=== PATIENT | male | born 2000 | race Two or more races ===

== ENCOUNTER 2024-04-22 07:49 | Emergency (ER) | payer MEDICAID, SELFPAY ==
[2024-04-22 07:59] VITALS: BP 135/82; PULSE 84; RESP 18; TEMP 36.6; O2SAT 97; BMI 29.8
--- NOTE | 2024-04-22 08:08 | XR_ITS ---
Examination: Toes, right foot second digit 3 views Technique: Toes AP oblique lateral 3 views first digit right foot Date and time of exam: April 22, 2024 0842 hrs. Indications: Injury to the foot today with second digit pain Findings: No acute fracture Limited study, no true lateral view the second digit No dislocation No foreign body Impression: No acute fracture
--- NOTE | 2024-04-22 08:08 | PD.EDANKLE ---
Lower Extremity Injury RME/HPI General Chief Complaint: Ankle/Foot Injury Stated Complaint: RIGHT BIG TOE INJURY Time Seen by Provider: 04/22/24 07:55 Arrival date/time: 04/22/24 07:49 23 year old male present to emergency room with c/o of right toe injury today. uptodate with tetanus LOCATION: toe SEVERITY: Symptoms are described as being severe with limitations on activities of daily living QUALITY: Symptoms are described as being dull or achy CONTEXT: accidently stub toe at home DURATION/TIMING: The symptoms started approximately immediately prior to arrival ago and have been constant this then. ASSOCIATED SYMPTOMS: The patient is unable to identify any other associated symptoms. MODIFYING FACTORS: The patient is unable to identify any alleviating or aggravating symptoms. PERTINENT ROS: no fevers, no headache, no neck or chest pain, no unexplained nausea or vomiting, no focal neurological deficits REVIEW OF SYSTEMS: See History of Present Illness - with the exception of those mentioned in the history of present illness, all other systems reviewed and reported as negative GENERAL: In general the patient is awake, interactive, in an emergency department gurney. HEAD/EYES/EARS/NOSE/THROAT: normo-cephalic, atraumatic, mucus membranes are moist, anicteric, palpebral conjunctiva is pink, trachea is midline. NEUROLOGICAL: cranio-facial features are symmetric, moves all four extremities equally without obvious limitations or weakness. EXTREMITY: right foot 2nd MTP + nail plate avulsion and no active bleeding + tenderness no tenderness to palpation over the long bones or large joints of the bilateral upper extremities, no joint swelling, no joint erythema, no unilateral leg swelling and no peripheral edema. SKIN: warm, dry, well-perfused, no jaundice, no rash, no telangiectasias or petechia. PSYCH: calm, cooperative, no evidence of psychosis or agitation Related Data Previous Rx's ?Medication ?Instructions ?Recorded cephalexin 250 mg capsule 250 mg PO Q6H #7 caps 04/22/24 Allergies Allergy/AdvReac Type Severity Reaction Status Date / Time NKA* Allergy Uncoded 04/22/24 07:51 Course Course Course Narrative: xray: wound care, dressing, crutches first dose of keflex 500mg did not remove nail plate. no active bleeding nail plate separate from nail cuticle + nail plate fungus, difficult to repair will leave open. most likely toe nail plate will fall off. pt understands and agreeable with plan. xray: Findings: No acute fracture Limited study, no true lateral view the second digit No dislocation No foreign body Impression: No acute fracture Quality Measures none Orders Category Date Time Status Crutches .NOW Care 04/22/24 08:08 Active Dress wound [Wound Care] X1 Care 04/22/24 08:08 Active Irrigate Wound NOW Care 04/22/24 08:08 Active XR toe RT min 2V Stat Exams 04/22/24 08:08 Completed cephALEXin [Keflex] Med 04/22/24 08:08 Discontinued 500 mg PO X1 ONE Vital Signs Vital signs: Vital Signs Temperature 97.8 F 04/22/24 07:59 Pulse Rate 84 04/22/24 07:59 Respiratory Rate 18 04/22/24 07:59 Blood Pressure 135/82 H 04/22/24 07:59 Pulse Oximetry (%) 97 04/22/24 07:59 Oxygen Delivery Method Room Air 04/22/24 07:59 Extremity Injury, Lower Patient data External records reviewed:: None Clinical information provided by:: patient Social determinants that could affect healthcare access:: none Patient has the following chronic illnesses:: none How is presenting disease/condition affected by chronic disease/condition?: no chronic disease Evaluation data The following diagnostics were reviewed and interpreted by me:: radiology exam(s) Lab and/or radiology exams considered but not ordered:: none Interpretation Summary: xray: Findings: No acute fracture Limited study, no true lateral view the second digit No dislocation No foreign body Impression: No acute fracture Medications / Prescriptions Medications or Prescriptions considered but not ordered:: n/a Medication administrations:: Medication Administration History Discontinued Medications Cephalexin HCl (Cephalexin 250 Mg Capsule) 500 mg PO X1 ONE Stop: 04/22/24 08:09 Last Admin: 04/22/24 08:32 Dose: 500 mg Documented By: JT as stated above Consultations Consultation(s) initiated? (list below): No Diagnosis Most likely diagnosis given after review of the tests above:: toe contusion, nail plate separation Admission Indicated Admission indicated?: not indicated Admission Request Was there a request for admission?: No Disposition Plan Disposition Plan: Discharge Discharge Attestation Discharge Attestation: The patient and all family members were given an opportunity to ask questions and understood the discharge instructions. Discharge instructions specifically effects, indications for sooner follow up or return to the emergency department, and the expected course of current diagnosis. Patient condition: Stable Discharge Plan Plan Patient Disposition: HOME (Self Care) Health Concerns: Follow with PMD as directed Take tylenol or motrin as need Return to ED if sx worsen Prescriptions/Referrals Prescriptions/Med Rec: New cephalexin 250 mg capsule 250 mg PO Q6H Qty: 7 0RF Problem List Clinical Impression: Separation of nail plate Patient/Caregiver Discharge Instructions Education Materials: ED Dressing Change Print Language: Micronesian Stand Alone Forms: Eleanor Award Info., Patient Portal Info Letter
[2024-04-22] MEDS: cephALEXin 250 MG CAPSULE 500 MG PO (08:32)
== END 2024-04-22 09:43 | disposition home or self-care (01) ==
PROVIDERS: Emergency Provider Emergency Medicine; PCP Family Medicine
DX: S91.201A Unspecified open wound of right great toe with damage to nail, initial encounter (principal); B35.1 Tinea unguium; X58.XXXA Exposure to other specified factors, initial encounter
CPT/HCPCS: 73660; 99283; A9270

== ENCOUNTER 2025-02-14 19:37 | Emergency (ER) | payer MEDICAID, SELFPAY ==
[2025-02-14 19:40] VITALS: BMI 29.1
--- NOTE | 2025-02-14 19:51 | PD.EDURI ---
Upper Respiratory Inf. RME/HPI General Chief Complaint: Flu Like Symptoms Stated Complaint: COUGHING,BODYACHES Time Seen by Provider: 02/14/25 19:55 Arrival date/time: 02/14/25 19:37 RME / HPI RME / HPI Narrative: See [facility] for Dr. Boudreaux's HPI Documentation. Related Data Previous Rx's ?Medication ?Instructions ?Recorded cephalexin 250 mg capsule 250 mg PO Q6H #7 caps 04/22/24 acetaminophen 300 mg-codeine 30 mg 2 tab PO Q8H PRN pain #10 tabs 02/14/25 tablet albuterol sulfate 90 mcg/actuation 2 puff inhalation Q6H PRN 02/14/25 aerosol inhaler shortness of breath or wheezing #8.5 grams ibuprofen 800 mg tablet 800 mg PO Q8H PRN pain #30 tabs 02/14/25 oseltamivir 75 mg capsule (Tamiflu) 75 mg PO BID 5 days #10 caps 02/14/25 Allergies Allergy/AdvReac Type Severity Reaction Status Date / Time No Known Allergies Allergy Verified 02/14/25 19:38 Review of Systems Review of Systems Systems Reviewed: All systems reviewed, normal except as documented Past Medical History Past Medical History RESPIRATORY: Positive Asthma ED Exam Narrative Physical exam: See [facility] for Dr. Boudreaux's Physical Exam Documentation. Course Quality Measures none Orders Category Date Time Status Bedside COVID-19 Antigen Test NOW Care 02/14/25 19:53 Completed Bedside Influenza A&B Antigen Test NOW Care 02/14/25 19:53 Completed Bedside STREP Test NOW Care 02/14/25 19:53 Completed XR chest 2V Stat Exams 02/14/25 19:53 Completed ACETAMINOPHEN w/COD 300-30 [Tylenol w/Cod #3] Med 02/14/25 19:52 Discontinued 2 tab PO X1 ONE Ibuprofen Tab [Motrin Tab] Med 02/14/25 19:52 Discontinued 800 mg PO X1 ONE Ondansetron Odt [Zofran Odt] Med 02/14/25 19:52 Discontinued 4 mg PO X1 ONE Oseltamivir [Tamiflu] Med 02/14/25 20:26 Discontinued 75 mg PO X1 ONE predniSONE Med 02/14/25 19:52 Discontinued 60 mg PO X1 ONE Vital Signs Vital signs: Vital Signs Temperature 98.9 F 02/14/25 19:52 Pulse Rate 118 H 02/14/25 19:52 Respiratory Rate 18 02/14/25 19:52 Blood Pressure 147/72 H 02/14/25 19:52 Pulse Oximetry (%) 98 02/14/25 19:52 Oxygen Delivery Method Room Air 02/14/25 19:52 Upper Respiratory Infection MDM Narrative MDM Narrative:: This section includes all my notes and documentations, including HPI, PE, and ED course. Fabio Boudreaux MD HPI: 24 y/o male with Hx of Asthma presents with cough, congestion, and body aches for about 24 hours. No other complaints. ROS: All negative except as documented in HPI. Physical Exam: General: Alert and oriented. Appears uncomfortable. Eyes: Conjunctivae and lids clear. ENT: No nasal congestion. Pharynx normal. TM normal bilaterally. Neck: Supple. Heart: Tachycardia with regular rhythm. Lungs: No respiratory distress. Good air movement. No rhonchi, wheezing, rales. Abdomen: Soft and nontender. Skin: Warm and dry. Neuro: Alert and oriented X 3. I reviewed all diagnostic test results: My interpretation of the chest x-ray is: NAD. Covid/Influenza: Positive Influenza A. Rapid Strep: Negative. At this point, diagnoses include: Influenza Treatment here included: Two Tylenol #3 Motrin 800 mg Zofran ODT 4 mg Prednisone 60 mg Tamiflu 75 mg He felt much better. Recommended outpatient treatment. Based on my best medical judgment, made decision no further evaluation or treatment indicated at this time. Patient understands and agrees to the discharge instructions customized and printed, see below. Discharge instructions from Dr. Boudreaux: -- No physical exertion for 3 days to help rest the lungs. -- No smoking or exposure to smoking or pets or dust or cold or humidity. -- Tamiflu to kill the germs causing the Influenza. -- Prednisone to help decrease the swelling in the airways. -- Albuterol 2 puffs every 4-6 hours as needed for cough or shortness of breath. -- For good hydration, increase oral fluid and maintain clear urine. If dark or yellow, increase oral fluid. We need extra fluid when we are sick. -- Ibuprofen 800 mg every 6-8 hours today and tomorrow to decrease inflammation then as needed. -- Tylenol with codeine for severe cough or severe pain. -- See a private doctor next week for recheck if not completely better. -- Seek immediate medical care with worsening or with any concerns. Fabio Boudreaux MD Patient data External records reviewed:: [facility] previous records (Reviewed prior ED records from 04/22/24. Patient was seen for Separation of nail plate.) Clinical information provided by:: patient Social determinants that could affect healthcare access:: none Patient has the following chronic illnesses:: Asthma How is presenting disease/condition affected by chronic disease/condition?: exacerbated by Evaluation data The following diagnostics were reviewed and interpreted by me:: radiology exam(s) Lab and/or radiology exams considered but not ordered:: None Interpretation Summary: I reviewed all diagnostic test results: My interpretation of the chest x-ray is: NAD. Covid/Influenza: Positive Influenza A. Rapid Strep: Negative. Medications / Prescriptions Medications or Prescriptions considered but not ordered:: None Medication administrations:: Medication Administration History Discontinued Medications Acetaminophen/Codeine Phosphate (Acetaminophen W/Cod 300-30 Tablet) 2 tab PO X1 ONE Stop: 02/14/25 19:53 Last Admin: 02/14/25 20:06 Dose: 2 tab Documented By: BAUDILIO Ibuprofen (Ibuprofen Tab 400 Mg Tablet) 800 mg PO X1 ONE Stop: 02/14/25 19:53 Last Admin: 02/14/25 20:07 Dose: 800 mg Documented By: BAUDILIO Ondansetron HCl (Ondansetron Odt 4 Mg Tabrap) 4 mg PO X1 ONE; Protocol Stop: 02/14/25 19:53 Last Admin: 02/14/25 20:05 Dose: 4 mg Documented By: BAUDILIO Oseltamivir Phosphate (Oseltamivir 75 Mg Capsule) 75 mg PO X1 ONE Stop: 02/14/25 20:27 Last Admin: 02/14/25 20:35 Dose: 75 mg Documented By: WILVER Prednisone (Prednisone 20 Mg Tablet) 60 mg PO X1 ONE Stop: 02/14/25 19:53 Last Admin: 02/14/25 20:06 Dose: 60 mg Documented By: BAUDILIO Treatment here included: Two Tylenol #3 Motrin 800 mg Zofran ODT 4 mg Prednisone 60 mg Tamiflu 75 mg Consultations Consultation(s) initiated? (list below): No Diagnosis Upper Respiratory Differential Diagnosis: upper respiratory infection, otitis media, sinusitis, viral infection, bronchitis, influenza and pharyngitis Most likely diagnosis given after review of the tests above:: Influenza Admission Indicated Admission indicated?: not indicated Explain why admission is indicated or not indicated:: With significant improvement and no condition needing emergent intervention, there was no indication for admission. Admission Request Was there a request for admission?: No Disposition Plan Disposition Plan: Discharge Discharge Attestation Discharge Attestation: The patient and all family members were given an opportunity to ask questions and understood the discharge instructions. Discharge instructions specifically effects, indications for sooner follow up or return to the emergency department, and the expected course of current diagnosis. Patient condition: Stable Discharge Plan Plan Patient Disposition: HOME (Self Care) Prescriptions/Referrals Prescriptions/Med Rec: New ibuprofen 800 mg tablet 800 mg PO Q8H PRN (Reason: pain) Qty: 30 0RF acetaminophen-codeine 300-30 mg tablet 2 tab PO Q8H MDD 6 PRN (Reason: pain) Qty: 10 0RF oseltamivir [Tamiflu] 75 mg capsule 75 mg PO BID 5 Days Qty: 10 0RF albuterol sulfate 90 mcg/actuation HFA aerosol inhaler 2 puff inhalation Q6H PRN (Reason: shortness of breath or wheezing) Qty: 8.5 0RF No Action cephalexin 250 mg capsule 250 mg PO Q6H Qty: 7 0RF Referrals: Marilu Neumann PA-C [Primary Care Provider] - In 1 week Problem List Clinical Impression: Influenza Patient/Caregiver Discharge Instructions Discharge Activity: activity as tolerated Education Materials: ED Influenza (Adult) Additional Instructions: Discharge instructions from Dr. Boudreaux: -- No physical exertion for 3 days to help rest the lungs. -- No smoking or exposure to smoking or pets or dust or cold or humidity. -- Tamiflu to kill the germs causing the Influenza. -- Prednisone to help decrease the swelling in the airways. -- Albuterol 2 puffs every 4-6 hours as needed for cough or shortness of breath. -- For good hydration, increase oral fluid and maintain clear urine. If dark or yellow, increase oral fluid. We need extra fluid when we are sick. -- Ibuprofen 800 mg every 6-8 hours today and tomorrow to decrease inflammation then as needed. -- Tylenol with codeine for severe cough or severe pain. -- See a private doctor next week for recheck if not completely better. -- Seek immediate medical care with worsening or with any concerns. Print Language: Bermudian Stand Alone Forms: Eleanor Award Info., Patient Portal Info Letter
[2025-02-14 19:52] VITALS: BP 147/72; PULSE 118; RESP 18; TEMP 37.2; O2SAT 98
--- NOTE | 2025-02-14 19:53 | XR_ITS ---
EXAMINATION: PA lateral chest 2 views TECHNIQUE: Upright PA and lateral chest 2 views Date and time: , 2024, 1952 hours INDICATION: Coughing fever body aches beginning today FINDINGS: Normal heart size Lungs are clear. Intact osseous structures IMPRESSION: No active disease
[2025-02-14] MEDS: ONDANSETRON ODT 4 MG TABRAP PO (20:05)
[2025-02-14] MEDS: ACETAMINOPHEN w/COD 300-30 TABLET 2 TAB PO (20:06)
[2025-02-14] MEDS: IBUPROFEN TAB 400 MG TABLET 800 MG PO (20:07)
[2025-02-14] MEDS: OSELTAMIVIR 75 MG CAPSULE PO (20:35)
[2025-02-14 21:05] VITALS: PULSE 98; RESP 18; TEMP 36.6; O2SAT 98
[2025-02-14 21:06] VITALS: RESP 18
== END 2025-02-14 21:07 | disposition home or self-care (01) ==
PROVIDERS: Emergency Provider Emergency Medicine; PCP Physician Assistant
DX: J10.1 Influenza due to other identified influenza virus with other respiratory manifestations (principal); J45.909 Unspecified asthma, uncomplicated
CPT/HCPCS: 71046; 87502; 87635; 87651; 99283; J7512; Q0162; A9270